=== PATIENT | female | born 2000 | race Caucasian/White ===

== ENCOUNTER 2024-03-05 19:20 | Emergency (ER) | payer BC ==
[2024-03-05 20:27] LABS: #Basophils Less than 0.03 10x3/uL (0.0-0.2); %Basophils 0.2 % (0.0-1.0); %Eosinophils 1.5 % (0.0-10.0); %Lymphocytes 26.5 % (21.0-51.0); %Monocytes 4.8 % (0.0-10.0); %Neutrophils 66.8 % (42.0-75.0); Hematocrit 42.3 % (36.0-47.0); Hemoglobin 14.4 g/dL (12.0-16.0); Mean Corpuscular Hemoglobin 31.5 pg (27.0-31.0); Mean Corpuscular Volume 92.6 fL (78.0-98.0); Mean Platelet Volume 9.8 fL (7.4-10.4); Platelet Count 205 10x3/uL (130-400); RBC Distribution Width 11.9 % (11.5-14.5); Red Blood Cell (RBC) Count 4.57 mill/uL (4.20-5.40)
[2024-03-05 20:35] LABS: BHCG - Serum Negative (NEGATIVE); Pregs Control Background? CLEAR/WHITE (CLR/WHITE); Pregs Control Bar Appear? YES (CONTROL BAR)
[2024-03-05 20:40] LABS: ALT (SGPT) 14 U/L (8-55); AST (SGOT) 18 U/L (5-34); Albumin 3.9 g/dL (3.5-5.0); Alkaline Phosphatase 36 U/L (40-110); Anion Gap 13 mmol/L (10-20); BUN (Urea Nitrogen) 15 mg/dL (7.0-18.7); Bilirubin, Total 0.5 mg/dL (0.2-1.2); Calc. Creatinine Clearance 0 mL/min (70-130); Calcium 9.5 mg/dL (7.8-10.44); Carbon Dioxide 22 mmol/L (22-29); Chloride 108 mmol/L (98-107); Estimated GFR 101; Globulin 2.9 g/dL (2.4-3.5); Glucose 101 mg/dL (70-105); Potassium 3.8 mmol/L (3.5-5.1); Protein, Total 6.8 g/dL (6.0-8.3); Sodium 139 mmol/L (136-145)
[2024-03-05] MEDS ORDERED: Ketorolac Tromethamine 30 MG (1 mL) VIAL ONE (22:30)
[2024-03-05] MEDS ORDERED: diphenhydrAMINE 50 MG/ML VIAL ONE (22:30)
[2024-03-05] MEDS ORDERED: Metoclopramide HCl 10 MG (2 mL) VIAL ONE (22:30)
== END 2024-03-06 00:17 | disposition home or self-care (01) ==
LOC: ERS 19:20
DX: R51.9 Headache, unspecified (principal); R20.0 Anesthesia of skin; Z55.6 Problems related to health literacy
CPT/HCPCS: 36415; 70450; 80053; 84703; 85025; 96374; 96375; J1200; J1885; J2765

== ENCOUNTER 2024-04-03 13:41 | Outpatient (CLI) | payer BC ==
[~2024-04-03 13:41] MED LIST: Magnevist 469MG/ML 20 ML VIAL ONE
== END 2024-04-03 13:42 | disposition home or self-care (01) ==
LOC: MRI 13:41
DX: G43.909 Migraine, unspecified, not intractable, without status migrainosus (principal)
CPT/HCPCS: 70553; 76376